=== PATIENT | female | born 1985 | race Caucasian/White ===

== ENCOUNTER → 2016-07-23 | Outpatient (CLI) | payer OTHER ==
[2016-07-24 05:16] LABS: Cardiolipin Ab IgG <9.0 GPL (<15); Cardiolipin Ab IgM 13.6 MPL (<12.5)
[2016-07-24 10:54] LABS: Protein C (Activity) 115 % (70 - 130)
[2016-07-25 10:32] LABS: MTHFR Genotyping(C677T/A1298C) Normal Genotype
[2016-07-26 12:13] LABS: Free Protein S Antigen 92 % (50 - 147)
== END | disposition home or self-care (01) ==
LOC: LABWHC1 10:10
PROVIDERS: ATTEND Obstetrics & Gynecology
DX: Z39.2 Encounter for routine postpartum follow-up (principal)
CPT/HCPCS: 36415; 81241; 81291; 85300; 85303; 85306; 86147

== ENCOUNTER → 2016-09-10 | Outpatient (CLI) | payer OTHER | END | disposition home or self-care (01) | LOC: LABWHC1 14:54 | PROVIDERS: ATTEND Obstetrics & Gynecology | DX: Z34.91 Encounter for supervision of normal pregnancy, unspecified, first trimester (principal); Z3A.00 Weeks of gestation of pregnancy not specified | CPT/HCPCS: 36415; 84702 ==

== ENCOUNTER → 2016-11-26 | Outpatient (CLI) | payer OTHER ==
[2016-11-26 17:21] LABS: CH 31.4; CHCM 34.6; HCT 35.8 % (34.0-46.0); HDW 2.52; HGB 12.2 gm/dL (11.4-16.0); MCH 30.9 pg (25.0-35.0); MCV 90.8 fL (80.0-100.0); Mean Platelet Volume 6.6; RBC 3.95 m/uL (3.80-5.40); RDW 13.7 % (11.5-15.5); WBC 10.6 k/uL (3.8-10.6)
[2016-11-26 17:37] LABS: Glucose 83 mg/dL (74-99); Non-African American GFR(MDRD) >60 (>60 ml/min/1.73 sqM)
[2016-11-26 18:07] LABS: Hepatitis B Surface Ag Index 0.07
== END | disposition home or self-care (01) ==
LOC: LABWHC1 16:14
PROVIDERS: ATTEND Obstetrics & Gynecology
DX: Z34.91 Encounter for supervision of normal pregnancy, unspecified, first trimester (principal); Z3A.00 Weeks of gestation of pregnancy not specified
CPT/HCPCS: 36415; 82565; 82947; 85027; 86762; 86780; 86850; 86900; 86901; 87340

== ENCOUNTER → 2017-03-03 | Outpatient (CLI) | payer OTHER ==
[2017-03-03 10:06] LABS: CH 32.4; CHCM 34.4; HCT 37.7 % (34.0-46.0); HDW 2.88; HGB 12.7 gm/dL (11.4-16.0); MCH 31.9 pg (25.0-35.0); MCHC 33.7 g/dL (31.0-37.0); MCV 94.6 fL (80.0-100.0); RBC 3.99 m/uL (3.80-5.40); RDW 13.9 % (11.5-15.5); WBC 11.3 k/uL (3.8-10.6)
== END | disposition home or self-care (01) ==
LOC: LABWHC1 08:31
PROVIDERS: ATTEND Obstetrics & Gynecology
DX: Z34.82 Encounter for supervision of other normal pregnancy, second trimester (principal)
CPT/HCPCS: 36415; 82950; 85027

== ENCOUNTER 2017-06-06 06:00 | Inpatient (IN) | payer BC, OTHER ==
[2017-06-06] MEDS ORDERED: TERBUTALINE 1 MG/ML VIAL SQ PRN (06:24)
[2017-06-06] MEDS ORDERED: LIDOCAINE 1% (PF) 10 MG/ML (30 ML SDV) SQ PRN (06:24)
[2017-06-06] MEDS ORDERED: CARBOPROST TROMETHAMINE 250 MCG/ML 1 ML AMP IM PRN (06:24)
[2017-06-06] MEDS ORDERED: OXYTOCIN 20 UNITS/1000 ML NS 1,000 ML IV SCH ×2 (06:24→18:30)
[2017-06-06] MEDS ORDERED: OXYTOCIN 10 UNIT/ML 1 ML VIAL IM PRN (06:24)
[2017-06-06] MEDS ORDERED: METHYLERGONOVINE 0.2 MG/ML 1 ML AMP IM PRN (06:24)
[2017-06-06 06:35] VITALS: BMI 30.8
[2017-06-06] MEDS: LACTATED RINGERS 1,000 ML IV SCH ×3 (06:39→14:04)
[2017-06-06 06:47] LABS: Basophils % (A) 0 %; CH 28.5; Eosinophils # (A) 0.1 k/uL (0-0.7); Eosinophils % (A) 1 %; HCT 33.4 % (34.0-46.0); HDW 3.12; HGB 10.9 gm/dL (11.4-16.0); Luc % (Auto) 1; Lymphocytes # (A) 1.6 k/uL (1.0-4.8); Lymphocytes % (A) 17 %; MCH 28.4 pg (25.0-35.0); MCHC 32.7 g/dL (31.0-37.0); MCV 86.8 fL (80.0-100.0); Mean Platelet Volume 8.5; Monocytes # (A) 0.4 k/uL (0-1.0); Monocytes % (A) 5 %; Neutrophils # (A) 6.9 k/uL (1.3-7.7); Neutrophils % (A) 76 %; RBC 3.85 m/uL (3.80-5.40); RDW 14.1 % (11.5-15.5); WBC 9.1 k/uL (3.8-10.6); WBC (Perox) 9.94
--- NOTE | 2017-06-06 07:10 | P.HPOB ---
History of Present Illness H&P Date: 06/06/17 Chief Complaint: Induction of Labor 32 year old presents at 39 weeks for induction of labor. Her cervix is 3 -4/80/-2 and she is cr irregularly. heart tones 130-135 with moderate variability and reactive. Review of Systems All systems: negative Constitutional: Denies chills, Denies fever Eyes: denies blurred vision, denies pain Ears, nose, mouth and throat: Denies headache, Denies sore throat Cardiovascular: Denies chest pain, Denies shortness of breath Respiratory: Denies cough Gastrointestinal: Denies abdominal pain, Denies diarrhea, Denies nausea, Denies vomiting Genitourinary: Denies dysuria, Denies hematuria Musculoskeletal: Denies myalgias Integumentary: Denies pruritus, Denies rash Neurological: Denies numbness, Denies weakness Psychiatric: Denies anxiety, Denies depression Endocrine: Denies fatigue, Denies weight change Past Medical History Past Medical History: Musculoskeletal Disorder Additional Past Medical History / Comment(s): OB history: First was a vaginal delivery at 42 weeks of a stillbirth. THis is her second and she has had care with me since 11 weeks. O+, abs neg, Rub immune, RPR NR, Hep B neg. The placenta has a velamentous cord insertion. THere have been growth USs every 3 weeks and the latest was 7#14 oz, BPPs weekly have been 8/8. GBS neg. History of Any Multi-Drug Resistant Organisms: None Reported Past Surgical History: No Surgical Hx Reported Past Anesthesia/Blood Transfusion Reactions: No Reported Reaction Past Psychological History: No Psychological Hx Reported Smoking Status: Never smoker Past Alcohol Use History: None Reported Past Drug Use History: None Reported - Past Family History Father Family Medical History: Coronary Artery Disease (CAD) Medications and Allergies Home Medications Medication Instructions Recorded Confirmed Type Ibuprofen [Motrin] 600 mg PO Q6HR PRN #30 tab 06/09/16 06/06/17 Rx Pnv No.95/Ferrous Fum/Folic AC 06/06/17 History [ Multivitamin Tablet] Allergies Allergy/AdvReac Type Severity Reaction Status Date / Time No Known Allergies Allergy Verified 06/06/17 06:23 Exam Osteopathic Statement: *. No significant issues noted on an osteopathic structural exam other than those noted in the History and Physical/Consult. - Vital Signs Vital signs: Vital Signs Temp Pulse Resp BP Pulse Ox 06/06/17 06:22 98.3 F 86 16 121/79 98 Intake and Output 06/05/17 06/06/17 06/06/17 22:59 06:59 14:59 Other: Weight 78.925 kg Heart: RRR Lungs: CTAB ABdomen: soft, nontender Extremeties: neg ronald's Results Result Diagrams: 06/06/17 06:27 Abnormal Lab Results - Last 24 Hours (Table) 06/06/17 Range/Units 06:27 Hgb 10.9 L (11.4-16.0) gm/dL Hct 33.4 L (34.0-46.0) % Assessment and Plan (1) Normal labor Current Visit: No Status: Resolved Code(s): O80 - ENCOUNTER FOR FULL-TERM UNCOMPLICATED DELIVERY; Z37.9 - OUTCOME OF DELIVERY, UNSPECIFIED SNOMED Code(s ): 65191920 Plan: 1. Admit to [facility] 2. induction with amniotomy and pitocin 3. anticipate normal vaginal delivery
[2017-06-06] MEDS ORDERED: fentaNYL (PF) 50 MCG/ML 5 ML AMP ONE (10:21)
[2017-06-06] MEDS ORDERED: BUPIVACAINE (PF) 0.25% 30 ML VIAL ONE (10:21)
[2017-06-06] MEDS ORDERED: SODIUM CHLORIDE 0.9% 100 ML BAG ONE (10:21)
[2017-06-06] MEDS ORDERED: Acetaminophen-Codeine 300-30mg TAB PO PRN (18:29)
[2017-06-06] MEDS ORDERED: ACETAMINOPHEN TAB 325 MG TAB PO PRN (18:29)
[2017-06-06] MEDS ORDERED: WITCH HAZEL 1 EACH MED..PAD TOPICAL PRN (18:29)
[2017-06-06] MEDS ORDERED: ZOLPIDEM 5 MG TAB PO PRN (18:29)
[2017-06-06] MEDS ORDERED: diphenhydrAMINE 25 MG CAP PO PRN (18:29)
[2017-06-06] MEDS ORDERED: diphenhydrAMINE 50 MG CAP PO PRN (18:29)
[2017-06-06] MEDS ORDERED: SIMETHICONE 80 MG CHEWABLE PO PRN (18:29)
[2017-06-06] MEDS ORDERED: HYDROCORTISONE 2.5% RECTAL CREAM 30 GM TUBE RECTAL PRN (18:29)
[2017-06-06] MEDS ORDERED: diphenhydrAMINE 50 MG/ML 1 ML VIAL IVP PRN ×2 (18:29)
[2017-06-06] MEDS ORDERED: LANOLIN CREAM 5 GM TUBE TOPICAL PRN (18:29)
[2017-06-06] MEDS ORDERED: BENZOCAINE/MENTHOL SPRAY 1 GM/SPRAY AEROSOL TOPICAL PRN (18:29)
[2017-06-06] MEDS ORDERED: KETOROLAC 30 MG/ML 1 ML VIAL IVP STA (18:41)
[2017-06-06] MEDS: Acetaminophen-Codeine 300-30mg TAB PO PRN ×2 (18:48→19:32)
[2017-06-06] MEDS: SENNOSIDES-DOCUSATE SODIUM 1 EACH TAB PO SCH (21:43)
[2017-06-07] MEDS: IBUPROFEN 600 MG TAB PO PRN ×2 (01:05→07:59)
[2017-06-07] MEDS: Acetaminophen-Codeine 300-30mg TAB PO PRN (05:51)
[2017-06-07] MEDS: SENNOSIDES-DOCUSATE SODIUM 1 EACH TAB PO SCH (07:59)
--- NOTE | 2017-06-07 08:50 | P.PROBDLV ---
Vaginal Delivery Note - . Vaginal Delivery Note: 32 year old presented at 39 weeks for induction of labor. Her cervix was 3-4/80/-2 and she was cr irregularly. heart tones 130-135 with moderate variability and reactive. Amniotomy was performed at 6:50 AM and clear fluid noted. Pitocin was also started. When she was uncomfortable and cr every few minutes, epidural was placed. At this time she was 5 cm dilated. She became extremely uncomfortable when she was about 8 cm dilated and -1 station. She is able to bear down with contractions to bring the head down and become complete at 1700. She pushed, and delivered a viable male at 181 over intact perineum under epidural anesthesia. Head delivered OA, nuchal cord 2 easily reduced, anterior shoulder delivered gentle downward traction followed by posterior shoulder and rest of body. Nose and mouth bulb suctioned, cord clamped and cut, infant placed on mother's abdomen. Apgars 7, 9 , weight 8 lbs. 8 oz. placenta delivered spontaneously, intact with three- vessel cord at 1819. Vagina, cervix, and perineum inspected. First-degree midline laceration was repaired with 3-0 Vicryl. Estimated blood loss 150 mL. Mother and baby in stable condition.
--- NOTE | 2017-06-07 08:51 | P.DS ---
Providers Date of admission: 06/06/17 06:11 Expected date of discharge: 06/07/17 Attending physician: Mercedes Guillen Primary care physician: Stated None - Discharge Diagnosis(es) (1) Normal vaginal delivery Current Visit: Yes Status: Acute Hospital Course: Patient presented for induction of labor. She underwent a normal vaginal delivery. Her course was uncomplicated. She'll be discharged home day #1 in stable condition to follow-up with me in 6 weeks. Plan - Discharge Summary New Discharge Prescriptions: No Action Ibuprofen [Motrin] 600 mg PO Q6HR PRN #30 tab PRN Reason: Mild Pain Or Fever >= 100.5 Pnv No.95/Ferrous Fum/Folic AC [ Multivitamin Tablet] Discharge Medication List Ibuprofen [Motrin] 600 mg PO Q6HR PRN #30 tab 06/09/16 [Rx] Pnv No.95/Ferrous Fum/Folic AC [ Multivitamin Tablet] 06/06/17 [History ] Follow up Appointment(s)/Referral(s): Mercedes Guillen DO [Doctor of Osteopathic Medicine] - 6 Weeks Discharge Disposition: HOME SELF-CARE
[2017-06-07 08:55] VITALS: TEMP 98.4
[2017-06-07 16:30] VITALS: BP 114/69; PULSE 75; RESP 18
== END 2017-06-07 18:40 | disposition home or self-care (01) | DRG 775 ==
LOC: 4FBP 06:11
PROVIDERS: ADMIT Obstetrics & Gynecology; ATTEND Obstetrics & Gynecology
PROC: 00HU33Z Insertion of Infusion Device into Spinal Canal, Percutaneous Approach (ICD-10-PCS; principal; 2017-06-06)
PROC: 3E033VJ Introduction of Other Hormone into Peripheral Vein, Percutaneous Approach (ICD-10-PCS; principal; 2017-06-06)
PROC: 0HQ9XZZ Repair Perineum Skin, External Approach (ICD-10-PCS; principal; 2017-06-06)
PROC: 10907ZC Drainage of Amniotic Fluid, Therapeutic from Products of Conception, Via Natural or Artificial Opening (ICD-10-PCS; principal; 2017-06-06)
PROC: 3E0R3BZ Introduction of Anesthetic Agent into Spinal Canal, Percutaneous Approach (ICD-10-PCS; principal; 2017-06-06)
DX: O69.81X0 Labor and delivery complicated by cord around neck, without compression, not applicable or unspecified (principal); Z37.0 Single live birth; O70.0 First degree perineal laceration during delivery; Z3A.39 39 weeks gestation of pregnancy
CPT/HCPCS: 85025; 88307

== ENCOUNTER → 2018-10-15 | Outpatient (CLI) | payer OTHER ==
[2018-10-15 10:02] LABS: HCT 39.9 % (34.0-46.0); HGB 13.2 gm/dL (11.4-16.0); MCH 30.6 pg (25.0-35.0); MCHC 33.1 g/dL (31.0-37.0); MCV 92.5 fL (80.0-100.0); Mean Platelet Volume 7.3; Platelet Count 268 k/uL (150-450); RBC 4.32 m/uL (3.80-5.40); WBC 9.1 k/uL (3.8-10.6)
[2018-10-15 10:20] LABS: Glucose 68 mg/dL (74-99)
--- NOTE | 2018-10-15 11:24 | US ---
EXAMINATION TYPE: Transabdominal/Transvaginal OB Less Than 14 weeks. DATE OF EXAM: 10/15/2018 10:39 AM COMPARISON: NONE CLINICAL HISTORY: Z36 Confirm dates. Confirm dates. EXAM PERFORMED: Transvaginal (TV) and Transabdominal (TA) EXAM MEASUREMENTS: GESTATIONAL AGE / DATING Physician Established: Not yet established Dates by LMP: 08/15/2018 (8 weeks/5 days) EDC: 05/22/2019 Dates by First Scan: This is first scan. Dates by Current Scan for: (8 weeks/0 days) EDC: 05/27/2019 MATERNAL ANATOMY Uterus: 9.5 x 7.5 x 5.9 cm Right Ovary: 3.4 x 2.4 x 1.7 cm Left Ovary: 4.0 x 2.5 x 2.1 cm Post CDS / Adnexa: Wnl. Presence of free fluid: Not seen Presence of corpus luteal cyst: mixed solid lesion with peripheral flow within ovary: 1.9 x 2.5 x 1.2 cm. Presence of subchorionic bleed: Not seen. GESTATION / SURVEY CRL: 1.57 (8 weeks/0 days) Yolk Sac (normal less than 6mm): 2.28 Heart Rate: 161 bpm Rhythm: Normal IUP: Viable IUP Date of LMP: 08/15/2018 Beta HcG (if available): N/A IMPRESSION: 1. Single viable intrauterine .
== END ==
LOC: RADUSWWP 09:05
PROVIDERS: ATTEND Obstetrics & Gynecology
DX: Z36.9 Encounter for antenatal screening, unspecified (principal); Z34.81 Encounter for supervision of other normal pregnancy, first trimester; Z3A.08 8 weeks gestation of pregnancy
CPT/HCPCS: 76801; 76817; 82565; 82947; 85027; 86762; 86780; 86850; 86900; 86901; 87340

== ENCOUNTER 2018-11-01 23:58 | Emergency (ER) | payer OTHER ==
[2018-11-02 00:04] VITALS: RESP 18
[2018-11-02] MEDS ORDERED: ONDANSETRON 4 MG/2 ML VIAL IVP STA (00:41)
[2018-11-02] MEDS ORDERED: FAMOTIDINE 20 MG/2 ML VIAL IV STA (00:42)
[2018-11-02] MEDS ORDERED: ACETAMINOPHEN TAB 500 MG TAB PO STA (00:42)
--- NOTE | 2018-11-02 00:46 | ED ---
General Adult HPI - General Source: patient, family, RN notes reviewed Mode of arrival: ambulatory Limitations: no limitations <Corey Vargas P - Last Filed: 11/02/18 03:05> <Bethanie Ahumada P - Last Filed: 11/02/18 05:57> - General Chief complaint: Nausea/Vomiting/Diarrhea Stated complaint: 10 wks pgt, vomiting Time Seen by Provider: 11/02/18 00:15 - History of Present Illness Initial comments: 33-year-old female currently 10 weeks presents to the emergency department for a chief complaint of nausea and vomiting. Patient states she has been vomiting every 10 minutes for 3 hours. Patient states she has pain in her upper abdomen when vomiting. Patient has been struggling with vomiting thr oughout this and states there are several hours during the morning and during the evening that she is nauseous and vomiting for the past several weeks. Patient denies any significant lower abdominal pain. Denies dysuria. Patient has no other complaints at this time including shortness of breath, chest pain, headache, or visual changes. (Corey Vargas) - Related Data Home Medications Medication Instructions Recorded Confirmed Pnv No.95/Ferrous Fum/Folic AC 06/06/17 [ Multivitamin Tablet] Previous Rx's Medication Instructions Recorded Ibuprofen [Motrin] 600 mg PO Q6HR PRN #30 tab 06/09/16 Allergies Allergy/AdvReac Type Severity Reaction Status Date / Time No Known Allergies Allergy Verified 11/02/18 00:03 Review of Systems ROS Other: All systems not noted in ROS Statement are negative. <Corey Vargas - Last Filed: 11/02/18 03:05> ROS Other: All systems not noted in ROS Statement are negative. <Bethanie Ahumada P - Last Filed: 11/02/18 05:57> ROS Statement: Those systems with pertinent positive or pertinent negative responses have been documented in the HPI. Past Medical History Past Medical History: Musculoskeletal Disorder Additional Past Medical History / Comment(s): OB history: First was a vaginal delivery at 42 weeks of a stillbirth. THis is her second and she has had care with or since 11 weeks. O+, abs neg, Rub immune, RPR NR, Hep B neg. The placenta has a velamentous cord insertion. THere have been growth USs every 3 weeks and the latest was 7#14 oz, BPPs weekly have been 8/8. GBS neg. History of Any Multi-Drug Resistant Organisms: None Reported Past Surgical History: No Surgical Hx Reported Past Anesthesia/Blood Transfusion Reactions: No Reported Reaction Past Psychological History: No Psychological Hx Reported Smoking Status: Never smoker Past Alcohol Use History: None Reported Past Drug Use History: None Reported - Past Family History Father Family Medical History: Coronary Artery Disease (CAD) <Corey Vargas P - Last Filed: 11/02/18 03:05> General Exam Limitations: no limitations General appearance: alert, in no apparent distress Head exam: Present: atraumatic, normocephalic, normal inspection Eye exam: Present: normal appearance, PERRL, EOMI. Absent: scleral icterus, conjunctival injection, periorbital swelling ENT exam: Present: normal exam, mucous membranes moist Neck exam: Present: normal inspection, full ROM. Absent: tenderness, meningismus, lymphadenopathy Respiratory exam: Present: normal lung sounds bilaterally. Absent: respiratory distress, wheezes, rales, rhonchi, stridor Cardiovascular Exam: Present: regular rate, normal rhythm, normal heart sounds. Absent: systolic murmur, diastolic murmur, rubs, gallop, clicks GI/Abdominal exam: Present: soft, tenderness (Tenderness noted in the upper abdominal area including epigastric, right upper quadrant, and left upper quadrant), normal bowel sounds. Absent: distended, guarding, rebound, rigid Neurological exam: Present: alert, oriented X3, CN II-XII intact Psychiatric exam: Present: normal affect, normal mood <Corey Vargas P - Last Filed: 11/02/18 03:05> Course Vital Signs 11/02/18 11/02/18 11/02/18 00:00 02:00 03:00 Temperature 98.1 F 97 F L Pulse Rate 98 89 72 Respiratory 18 18 18 Rate Blood Pressure 110/66 112/70 118/72 O2 Sat by Pulse 99 97 97 Oximetry Medical Decision Making - Lab Data Result diagrams: 11/02/18 00:41 11/02/18 00:41 <Corey Vargas P - Last Filed: 11/02/18 03:05> - Lab Data Result diagrams: 11/02/18 00:41 11/02/18 00:41 <Bethanie Ahumada - Last Filed: 11/02/18 05:57> - Medical Decision Making 33-year-old female presents to the emergency determine for chief complaint of upper abdominal pain with nausea and vomiting. Patient is currently 10 weeks . Patient states she has been vomiting every 10 minutes for the past 3 hours. Sates she has been having a lot of nausea and vomiting for the past several weeks with this . On exam patient does have upper abdominal tenderness without guarding or rebound. CBC does show a white count of 15, likely related to vomiting. CMP unremarkable. Bedside ultrasound was performed which showed heart rate 160. Urinalysis repeated because contaminated with squamous cells which did not show evidence of infection but did show 11 red blood cells. Patient was given Pepcid which did significantly help her pain and she states all her pain resolved. Repeat examination of the abdomen was performed and patient does not have any tenderness and abdomen is soft. However she is still nauseous. Patient given Zofran at that time. Patient still does have significant nausea after Zofran given and has vomited an additional time. Patient was given Reglan and Benadryl with D5 n saline, feeling much better. Actually requesting discharge at this time so he can go home and sleep as her nausea has resolved. Patient states she has an appointment with her [facility] Dr. Guillen tomorrow morning. States when will return here if she has any worsening symptoms. (Corey Vargas) I was available for consultation in the emergency department. The history and physical exam were done by the midlevel provider. I was consulted for this patient's care. I reviewed the case with the midlevel provider and based on their presentation of the patient, I agree with the assessment, medical decision making and plan of care as documented. (Bethanie Ahumada) - Lab Data Lab Results 11/02/18 11/02/18 11/02/18 Range/Units 00:41 00:41 01:35 WBC 15.1 H (3.8-10.6) k/uL RBC 4.37 (3.80-5.40) m/uL Hgb 13.1 (11.4-16.0) gm/dL Hct 38.6 (34.0-46.0) % MCV 88.3 (80.0-100.0) fL MCH 29.9 (25.0-35.0) pg MCHC 33.9 (31.0-37.0) g/dL RDW 12.6 (11.5-15.5) % Plt Count 260 (150-450) k/uL Neutrophils % 90 % Lymphocytes % 5 % Monocytes % 2 % Eosinophils % 2 % Basophils % 0 % Neutrophils # 13.6 H (1.3-7.7) k/uL Lymphocytes # 0.8 L (1.0-4.8) k/uL Monocytes # 0.4 (0-1.0) k/uL Eosinophils # 0.3 (0-0.7) k/uL Basophils # 0.0 (0-0.2) k/uL Sodium 137 (137-145) mmol/L Potassium 4.0 (3.5-5.1) mmol/L Chloride 105 (98-107) mmol/L Carbon Dioxide 25 (22-30) mmol/L Anion Gap 7 mmol/L BUN 16 (7-17) mg/dL Creatinine 0.40 L (0.52-1.04) mg/dL Est GFR (CKD-EPI)AfAm >90 (>60 ml/min/1.73 sqM) Est GFR (CKD-EPI)NonAf >90 (>60 ml/min/1.73 sqM) Glucose 91 (74-99) mg/dL Calcium 9.3 (8.4-10.2) mg/dL Total Bilirubin 0.6 (0.2-1.3) mg/dL AST 18 (14-36) U/L ALT 20 (9-52) U/L Alkaline Phosphatase 47 (38-126) U/L Total Protein 7.2 (6.3-8.2) g/dL Albumin 4.3 (3.5-5.0) g/dL Amylase 38 (30-110) U/L Lipase 110 (23-300) U/L HCG, Quant 549652.0 mIU/mL Urine Color Urine Appearance (Clear) Urine pH (5.0-8.0) Ur Specific Belcher (1.001-1.035) Urine Protein (Negative) Urine Glucose (UA) (Negative) Urine Ketones (Negative) Urine Blood (Negative) Urine Nitrite (Negative) Urine Bilirubin (Negative) Urine Urobilinogen (<2.0) mg/dL Ur Leukocyte Esterase (Negative) Urine RBC (0-5) /hpf Urine WBC (0-5) /hpf Ur Squamous Epith Cells (0-4) /hpf Urine Bacteria (None) /hpf Urine Mucus (None) /hpf Urine HCG, Qual Detected (Not Detectd) 11/02/18 11/02/18 Range/Units 01:35 02:21 WBC (3.8-10.6) k/uL RBC (3.80-5.40) m/uL Hgb (11.4-16.0) gm/dL Hct (34.0-46.0) % MCV (80.0-100.0) fL MCH (25.0-35.0) pg MCHC (31.0-37.0) g/dL RDW (11.5-15.5) % Plt Count (150-450) k/uL Neutrophils % % Lymphocytes % % Monocytes % % Eosinophils % % Basophils % % Neutrophils # (1.3-7.7) k/uL Lymphocytes # (1.0-4.8) k/uL Monocytes # (0-1.0) k/uL Eosinophils # (0-0.7) k/uL Basophils # (0-0.2) k/uL Sodium (137-145) mmol/L Potassium (3.5-5.1) mmol/L Chloride (98-107) mmol/L Carbon Dioxide (22-30) mmol/L Anion Gap mmol/L BUN (7-17) mg/dL Creatinine (0.52-1.04) mg/dL Est GFR (CKD-EPI)AfAm (>60 ml/min/1.73 sqM) Est GFR (CKD-EPI)NonAf (>60 ml/min/1.73 sqM) Glucose (74-99) mg/dL Calcium (8.4-10.2) mg/dL Total Bilirubin (0.2-1.3) mg/dL AST (14-36) U/L ALT (9-52) U/L Alkaline Phosphatase (38-126) U/L Total Protein (6.3-8.2) g/dL Albumin (3.5-5.0) g/dL Amylase (30-110) U/L Lipase (23-300) U/L HCG, Quant mIU/mL Urine Color Yellow Yellow Urine Appearance Cloudy H Clear (Clear) Urine pH 7.5 8.5 H (5.0-8.0) Ur Specific Belcher 1.028 1.029 (1.001-1.035) Urine Protein 1+ H 1+ H (Negative) Urine Glucose (UA) Negative Negative (Negative) Urine Ketones Negative Negative (Negative) Urine Blood Negative Negative (Negative) Urine Nitrite Negative Negative (Negative) Urine Bilirubin Negative Negative (Negative) Urine Urobilinogen <2.0 <2.0 (<2.0) mg/dL Ur Leukocyte Esterase Large H Negative (Negative) Urine RBC 18 H 11 H (0-5) /hpf Urine WBC 16 H 1 (0-5) /hpf Ur Squamous Epith Cells 30 H 2 (0-4) /hpf Urine Bacteria Rare H (None) /hpf Urine Mucus Many H Few H (None) /hpf Urine HCG, Qual (Not Detectd) Disposition Is patient prescribed a controlled substance at d/c from ED?: No Time of Disposition: 03:01 <Corey Vargas P - Last Filed: 11/02/18 03:05> <Bethanie Ahumada P - Last Filed: 11/02/18 05:57> Clinical Impression: Nausea and vomiting during Disposition: HOME SELF-CARE Condition: Good Instructions (If sedation given, give patient instructions): Nausea and Vomi ting in (ED) Additional Instructions: Please follow up with Dr. Guillen tomorrow. Please return to the emergency department if you have any worsening symptoms. Referrals: Mercedes Guillen DO [Doctor of Osteopathic Medicine] - 1-2 days
[2018-11-02 00:51] LABS: Basophils % (A) 0 %; Eosinophils # (A) 0.3 k/uL (0-0.7); Eosinophils % (A) 2 %; HCT 38.6 % (34.0-46.0); HGB 13.1 gm/dL (11.4-16.0); Lymphocytes # (A) 0.8 k/uL (1.0-4.8); Lymphocytes % (A) 5 %; MCH 29.9 pg (25.0-35.0); MCHC 33.9 g/dL (31.0-37.0); MCV 88.3 fL (80.0-100.0); Mean Platelet Volume 6.8; Monocytes # (A) 0.4 k/uL (0-1.0); Monocytes % (A) 2 %; Neutrophils # (A) 13.6 k/uL (1.3-7.7); Neutrophils % (A) 90 %; Platelet Count 260 k/uL (150-450); RBC 4.37 m/uL (3.80-5.40); RDW 12.6 % (11.5-15.5); WBC 15.1 k/uL (3.8-10.6)
[2018-11-02 00:59] LABS: ALT 20 U/L (9-52); AST 18 U/L (14-36); Albumin 4.3 g/dL (3.5-5.0); Alkaline Phosphatase 47 U/L (38-126); Amylase 38 U/L (30-110); Anion Gap 7 mmol/L; Blood Urea Nitrogen 16 mg/dL (7-17); Calcium 9.3 mg/dL (8.4-10.2); Carbon Dioxide 25 mmol/L (22-30); Chloride 105 mmol/L (98-107); Glucose 91 mg/dL (74-99); Lipase 110 U/L (23-300); Sodium 137 mmol/L (137-145); Total Bilirubin 0.6 mg/dL (0.2-1.3); Total Protein 7.2 g/dL (6.3-8.2)
[2018-11-02] MEDS ORDERED: diphenhydrAMINE 50 MG/ML 1 ML VIAL IVP STA (01:51)
[2018-11-02] MEDS ORDERED: METOCLOPRAMIDE 5 MG/ML 2 ML VIAL IVP STA (01:51)
[2018-11-02 01:55] LABS: Appearance,Urine Cloudy (Clear); Bacteria,Urine Rare /hpf; Bilirubin,Urine Negative (Negative); Blood,Urine Negative (Negative); Color,Urine Yellow; Glucose,Urine (UA) Negative (Negative); Ketones,Urine Negative (Negative); Leukocyte Esterase,Urine Large (Negative); Mucus,Urine Many /hpf; Nitrite,Urine Negative (Negative); PH, Urine 7.5 (5.0-8.0); Protein,Urine 1+ (Negative); RBC,Urine 18 /hpf (0-5); Specific Gravity,Urine 1.028 (1.001-1.035); Squamous Epithelial Cell,Urine 30 /hpf (0-4); Urobilinogen,Urine <2.0 mg/dL (<2.0); WBC,Urine 16 /hpf (0-5)
[2018-11-02] MEDS ORDERED: DEXTROSE 5%-0.9% NACL 1,000 ML IV SCH (02:00)
[2018-11-02 02:40] LABS: Appearance,Urine Clear (Clear); Bilirubin,Urine Negative (Negative); Blood,Urine Negative (Negative); Color,Urine Yellow; Glucose,Urine (UA) Negative (Negative); Ketones,Urine Negative (Negative); Leukocyte Esterase,Urine Negative (Negative); Mucus,Urine Few /hpf; Nitrite,Urine Negative (Negative); PH, Urine 8.5 (5.0-8.0); Protein,Urine 1+ (Negative); RBC,Urine 11 /hpf (0-5); Specific Gravity,Urine 1.029 (1.001-1.035); Squamous Epithelial Cell,Urine 2 /hpf (0-4); Urobilinogen,Urine <2.0 mg/dL (<2.0); WBC,Urine 1 /hpf (0-5)
[2018-11-02 03:02] VITALS: BP 118/72; PULSE 72; TEMP 97
== END 2018-11-02 03:09 | disposition home or self-care (01) ==
LOC: EC 23:58
DX: O21.9 Vomiting of pregnancy, unspecified (principal); Z3A.10 10 weeks gestation of pregnancy
CPT/HCPCS: 36415; 80053; 82150; 83690; 85025; 81001; 81025; 84702; 99284; 96374; 96375 ×3; 96361; J1200; J2765; J2405

== ENCOUNTER 2019-05-18 06:09 | Inpatient (IN) | payer OTHER ==
[2019-05-18] MEDS ORDERED: LIDOCAINE 0.5% (PF) 5 MG/ML (50 ML SDV) SQ PRN (06:20)
[2019-05-18] MEDS ORDERED: OXYTOCIN 30 UNITS/500 ML NS 30 UNIT in SALINE 1 500ML.BAG IV SCH (06:20)
[2019-05-18] MEDS ORDERED: OXYTOCIN 10 UNIT/ML 1 ML VIAL IM PRN (06:20)
[2019-05-18] MEDS ORDERED: METHYLERGONOVINE 0.2 MG/ML 1 ML AMP IM PRN (06:20)
[2019-05-18] MEDS ORDERED: CARBOPROST TROMETHAMINE 250 MCG/ML 1 ML AMP IM PRN (06:20)
[2019-05-18] MEDS ORDERED: TERBUTALINE 1 MG/ML VIAL SQ PRN (06:20)
[2019-05-18 06:27] VITALS: BMI 29.2
[2019-05-18] MEDS: LACTATED RINGERS 1,000 ML IV SCH ×3 (06:29→14:16)
[2019-05-18 06:47] LABS: Basophils % (A) 0 %; Eosinophils # (A) 0.2 k/uL (0-0.7); Eosinophils % (A) 2 %; HCT 31.7 % (34.0-46.0); HGB 10.8 gm/dL (11.4-16.0); Lymphocytes # (A) 1.4 k/uL (1.0-4.8); Lymphocytes % (A) 16 %; MCH 29.8 pg (25.0-35.0); MCHC 34.1 g/dL (31.0-37.0); MCV 87.2 fL (80.0-100.0); Mean Platelet Volume 7.2; Monocytes # (A) 0.4 k/uL (0-1.0); Monocytes % (A) 4 %; Neutrophils # (A) 6.8 k/uL (1.3-7.7); Neutrophils % (A) 76 %; Platelet Count 196 k/uL (150-450); RBC 3.63 m/uL (3.80-5.40); RDW 12.6 % (11.5-15.5)
[2019-05-18] MEDS ORDERED: ROPIVACAINE 5MG/ML 20ML VIAL ONE (14:21)
[2019-05-18] MEDS ORDERED: SODIUM CHLORIDE 0.9% 100 ML BAG ONE (14:21)
[2019-05-18] MEDS ORDERED: fentaNYL (PF) 50 MCG/ML 5 ML AMP ONE (14:21)
--- NOTE | 2019-05-18 23:49 | P.HPOB ---
History of Present Illness H&P Date: 05/18/19 Chief Complaint: Induction of labor 34-year-old presents at 39 weeks and 4 days for induction of labor. Her cervix was 1 cm dilated, 60% effaced, and -2 station. She is cr irregularly. heart tones 130 with moderate variability and reactive. Review of Systems All systems: negative Constitutional: Denies chills, Denies fever Eyes: denies blurred vision, denies pain Ears, nose, mouth and throat: Denies headache, Denies sore throat Cardiovascular: Denies chest pain, Denies shortness of breath Respiratory: Denies cough Gastrointestinal: Denies abdominal pain, Denies diarrhea, Denies nausea, Denies vomiting Genitourinary: Denies dysuria, Denies hematuria Musculoskeletal: Denies myalgias Integumentary: Denies pruritus, Denies rash Neurological: Denies numbness, Denies weakness Psychiatric: Denies anxiety, Denies depression Endocrine: Denies fatigue, Denies weight change Past Medical History Past Medical History: Musculoskeletal Disorder Additional Past Medical History / Comment(s): OB history: First was a vaginal delivery at 42 weeks of a stillbirth. Second was a normal vaginal delivery at 39 weeks. This is her third and she's had care with me since the first trimester. O+, abs neg, Rub immune, RPR NR, Hep B neg, GBS negative. [facility] [place] recommended NSTs, biophysical profiles and delivery at 39 weeks-40 weeks. History of Any Multi-Drug Resistant Organisms: None Reported Past Surgical History: No Surgical Hx Reported Past Anesthesia/Blood Transfusion Reactions: No Reported Reaction Past Psychological History: No Psychological Hx Reported Smoking Status: Never smoker Past Alcohol Use History: None Reported Past Drug Use History: None Reported - Past Family History Father Family Medical History: Coronary Artery Disease (CAD) Medications and Allergies Home Medications Medication Instructions Recorded Confirmed Type Pnv No.95/Ferrous Fum/Folic AC 1 tab PO DAILY 06/06/17 05/18/19 History [ Multivitamin Tablet] Allergies Allergy/AdvReac Type Severity Reaction Status Date / Time No Known Allergies Allergy Verified 05/18/19 06:20 Exam Osteopathic Statement: *. No significant issues noted on an osteopathic struct ural exam other than those noted in the History and Physical/Consult. Vital Signs Temp Pulse Resp BP Pulse Ox 05/18/19 06:23 97.2 F L 81 14 112/67 99 Intake and Output 05/18/19 05/18/19 05/19/19 14:59 22:59 06:59 Output Total 250 Balance -250 Output: Urine 250 Heart: Regular rate and rhythm Lungs: Clear to auscultation bilaterally Abdomen: Soft, nontender Extremities: Negative Homans sign Results Result Diagrams: 05/18/19 06:30 Abnormal Lab Results - Last 24 Hours (Table) 05/18/19 Range/Units 06:30 RBC 3.63 L (3.80-5.40) m/uL Hgb 10.8 L (11.4-16.0) gm/dL Hct 31.7 L (34.0-46.0) % Assessment and Plan (1) Normal labor Current Visit: No Status: Resolved Code(s): O80 - ENCOUNTER FOR FULL-TERM UNCOMPLICATED DELIVERY; Z37.9 - OUTCOME OF DELIVERY, UNSPECIFIED SNOMED Code(s): 58390459 Plan: 1. Admit to family place 2. Induction of labor with amniotomy and Pitocin 3. Anticipate normal vaginal delivery
[2019-05-19] MEDS ORDERED: HYDROCORTISONE 2.5% RECTAL CREAM 30 GM TUBE RECTAL PRN (00:27)
[2019-05-19] MEDS ORDERED: ZOLPIDEM 5 MG TAB PO PRN (00:27)
[2019-05-19] MEDS ORDERED: diphenhydrAMINE 25 MG CAP PO PRN (00:27)
[2019-05-19] MEDS ORDERED: diphenhydrAMINE 50 MG/ML 1 ML VIAL IVP PRN ×2 (00:27)
[2019-05-19] MEDS ORDERED: diphenhydrAMINE 50 MG CAP PO PRN (00:27)
[2019-05-19] MEDS ORDERED: SIMETHICONE 80 MG CHEWABLE PO PRN (00:27)
[2019-05-19] MEDS ORDERED: WITCH HAZEL 1 EACH MED..PAD TOPICAL PRN (00:27)
[2019-05-19] MEDS ORDERED: BENZOCAINE/MENTHOL SPRAY 1 GM/SPRAY AEROSOL TOPICAL PRN (00:27)
[2019-05-19] MEDS ORDERED: LANOLIN CREAM 5 GM TUBE TOPICAL PRN (00:27)
[2019-05-19] MEDS ORDERED: OXYTOCIN 20 UNITS/1000 ML NS 1,000 ML IV SCH (00:30)
[2019-05-19] MEDS: IBUPROFEN 600 MG TAB PO PRN ×3 (01:14→23:29)
[2019-05-19] MEDS: ACETAMINOPHEN TAB 325 MG TAB PO PRN ×3 (04:42→22:10)
--- NOTE | 2019-05-19 08:05 | P.PROBDLV ---
Vaginal Delivery Note - . Vaginal Delivery Note: 34-year-old presents at 39 weeks and 4 days for induction of labor. Her cervix was 1 cm dilated, 60% effaced, and -2 station. She is cr irregularly. heart tones 130 with moderate variability and reactive. Pitocin was started. Amniotomy was performed at 7:44 AM clear fluid noted. Pitocin was increased throughout the day and when she was very uncomfortable she did get an epidural. When she was 7-8 cm she did require a bolus under epidura l. When she had the urge to push she was still only 8-9 cm, 90% effaced, and -2 station. She did push well though and only pushed 2 times to deliver a viable male over intact perineum under epidural anesthesia at 0018. Head delivered OA, nuchal cord 1 easily reduced, anterior shoulder delivered gentle downward guidance of the posterior shoulder and rest of body. Nose and mouth bulb suctioned, cord clamped and cut, infant handed off to waiting nurses. Apgars 8, 9, weight 7 lbs. 7 oz. Placenta delivered spontaneously, intact with three-vessel cord at 0019. Vagina, cervix, and perineum were inspected. No lacerations noted. Estimated blood loss 300 mL. Mother and baby in stable condition.
[2019-05-19] MEDS: SENNOSIDES-DOCUSATE SODIUM 1 EACH TAB PO SCH ×2 (09:02→21:06)
[2019-05-20 07:13] LABS: Basophils % (A) 0 %; Eosinophils # (A) 0.2 k/uL (0-0.7); Eosinophils % (A) 2 %; HCT 28.8 % (34.0-46.0); Lymphocytes # (A) 1.8 k/uL (1.0-4.8); Lymphocytes % (A) 17 %; MCH 28.5 pg (25.0-35.0); MCHC 32.4 g/dL (31.0-37.0); MCV 87.9 fL (80.0-100.0); Mean Platelet Volume 7.8; Monocytes # (A) 0.4 k/uL (0-1.0); Monocytes % (A) 4 %; Neutrophils # (A) 7.5 k/uL (1.3-7.7); Neutrophils % (A) 75 %; Platelet Count 200 k/uL (150-450); RBC 3.28 m/uL (3.80-5.40); RDW 12.8 % (11.5-15.5)
[2019-05-20 07:16] LABS: HGB 9.3 gm/dL (11.4-16.0)
[2019-05-20 08:33] VITALS: BP 110/62; PULSE 79; RESP 16; TEMP 98.3
--- NOTE | 2019-05-20 12:25 | P.DS ---
Providers Date of admission: 05/18/19 06:09 Expected date of discharge: 05/20/19 Attending physician: Mercedes Guillen Primary care physician: Stated None Hospital Course: This is a 34-year-old female 3 para 1 at 39-3/7 weeks, who presented for induction of labor. She underwent oxytocin induction of labor and delivered vaginally a viable male infant on 05/19/2019 with scores of 8 at 1 minute and 9 at 5 minutes and infant weight of 7 lbs. 7 oz. Her course has been uncomplicated. Lochia is decreasing. Pain is well-controlled. Vital signs are stable. Abdomen is soft with fundus firm and nontender. Extremities show negative Homans. Impression is status post vaginal delivery day #1. Plan is to discharge home today. Routine instructions are given. She is advised to follow up in the office in 6 weeks for a check with Dr. Guillen. She is advised to call the office if she has any further questions or concerns prior to her appointment time. She will be given a presc ription for ibuprofen and a breast pump. Procedures: Oxytocin induction of labor Spontaneous vaginal delivery of a viable male infant on 05/19/2019 Patient Condition at Discharge: Stable Plan - Discharge Summary New Discharge Prescriptions: New Ibuprofen [Motrin] 600 mg PO Q6HR PRN #60 tab PRN Reason: Mild Pain Or Fever >= 100.5 Continue Pnv No.95/Ferrous Fum/Folic AC [ Multivitamin Tablet] 1 tab PO DAILY Discharge Medication List Pnv No.95/Ferrous Fum/Folic AC [ Multivitamin Tablet] 1 tab PO DAILY 06/06/17 [History] Ibuprofen [Motrin] 600 mg PO Q6HR PRN #60 tab 05/20/19 [Rx] Follow up Appointment(s)/Referral(s): Mercedes Guillen DO [Doctor of Osteopathic Medicine] - 6 Weeks Activity/Diet/Wound Care/Special Instructions: Instructions 1. Do not begin any exercise program for 3 weeks. 2. Do not resume sexual relations for 3 weeks or longer if uncomfortable. 3. You may take tub baths or showers at any time. 4. You may use tampons if desired after 3 weeks. 5. Keep the area of episiotomy (stitches) clean and dry. 6. If you are not nursing, wear a good fitting, supportive bra during the day and limit fluid intake for at least 1 week to prevent breast engorgement. 7. Call the office, [phone], within the next week to make appointment for your 6 week checkup if it has not already been made. 8. Report any of the following occurrences to the doctor promptly: a. Heavy, excessive bleeding b. Chills, fever c. Burning or frequency of urination d. Pain or redness and breasts if nursing e. Increasing pain or swelling in episiotomy (stitches). In addition to the above instructions, the following additional should be followed: 1. No heavy lifting or straining (exercising) until after 6 week checkup. 2. Keep abdominal incision clean and dry: You may wear a dressing if more comfortable. 3. Make office appointment for 10 days after going home or as instructed by her doctor. Discharge Disposition: HOME SELF-CARE
[2019-05-20] MEDS: IBUPROFEN 600 MG TAB PO PRN (13:56)
== END 2019-05-20 14:30 | disposition home or self-care (01) | DRG 807 ==
LOC: 4FBP 06:09
PROVIDERS: ADMIT Obstetrics & Gynecology; ATTEND Obstetrics & Gynecology
PROC: 10E0XZZ Delivery of Products of Conception, External Approach (ICD-10-PCS; principal; 2019-05-19)
PROC: 00HU33Z Insertion of Infusion Device into Spinal Canal, Percutaneous Approach (ICD-10-PCS; 2019-05-19)
PROC: 3E0R3BZ Introduction of Anesthetic Agent into Spinal Canal, Percutaneous Approach (ICD-10-PCS; 2019-05-19)
PROC: 10907ZC Drainage of Amniotic Fluid, Therapeutic from Products of Conception, Via Natural or Artificial Opening (ICD-10-PCS; 2019-05-19)
PROC: 3E033VJ Introduction of Other Hormone into Peripheral Vein, Percutaneous Approach (ICD-10-PCS; 2019-05-19)
DX: O69.81X0 Labor and delivery complicated by cord around neck, without compression, not applicable or unspecified (principal); Z37.0 Single live birth; Z3A.39 39 weeks gestation of pregnancy; Z82.49 Family history of ischemic heart disease and other diseases of the circulatory system
CPT/HCPCS: 85025; 86850; 86900; 86901

== ENCOUNTER → 2020-07-24 | Outpatient (CLI) | payer OTHER | END | disposition home or self-care (01) | LOC: LABWHC1 11:04 | PROVIDERS: ATTEND Obstetrics & Gynecology | DX: Z34.80 Encounter for supervision of other normal pregnancy, unspecified trimester (principal) | CPT/HCPCS: 36415; 84702 ==

== ENCOUNTER → 2020-07-26 | Outpatient (CLI) | payer OTHER | END | disposition home or self-care (01) | LOC: LABWHC1 09:32 | PROVIDERS: ATTEND Obstetrics & Gynecology | DX: Z34.80 Encounter for supervision of other normal pregnancy, unspecified trimester (principal) | CPT/HCPCS: 36415; 84702 ==

== ENCOUNTER 2021-03-14 11:26 | Day surgery (SDC) | payer OTHER ==
--- NOTE | 2021-03-14 11:09 | P.HPOB ---
History of Present Illness H&P Date: 03/14/21 Chief Complaint: missed 35 year old presents for suction D&C. She had an US this week showing an 8week 5 day with no heart beat. Review of Systems All systems: negative Constitutional: Denies chills, Denies fever Eyes: denies blurred vision, denies pain Ears, nose, mouth and throat: Denies headache, Denies sore throat Cardiovascular: Denies chest pain, Denies shortness of breath Respiratory: Denies cough Gastrointestinal: Denies abdominal pain, Denies diarrhea, Denies nausea, Denies vomiting Genitourinary: Denies dysuria, Denies hematuria Musculoskeletal: Denies myalgias Integumentary: Denies pruritus, Denies rash Neurological: Denies numbness, Denies weakness Psychiatric: Denies anxiety, Denies depression Endocrine: Denies fatigue, Denies weight change Past Medical History Past Medical History: Musculoskeletal Disorder Additional Past Medical History / Comment(s): OB history: First was a vaginal delivery at 42 weeks of a stillbirth. Second was a normal vaginal delivery at 39 weeks. This is her third and she's had care with me since the first trimester. O+, abs neg, Rub immune, RPR NR, Hep B neg, GBS negative. [facility] recommended NSTs, biophysical profiles and delivery at 39 weeks-40 weeks. History of Any Multi-Drug Resistant Organisms: None Reported Past Surgical History: No Surgical Hx Reported Past Anesthesia/Blood Transfusion Reactions: No Reported Reaction Past Psychological History: No Psychological Hx Reported Past Alcohol Use History: None Reported Past Drug Use History: None Reported - Past Family History Father Family Medical History: Coronary Artery Disease (CAD) Medications and Allergies Home Medications Medication Instructions Recorded Confirmed Type Pnv No.95/Ferrous Fum/Folic AC 1 tab PO DAILY 06/06/17 05/18/19 History [ Multivitamin Tablet] Ibuprofen [Motrin] 600 mg PO Q6HR PRN #60 tab 05/20/19 Rx Allergies Allergy/AdvReac Type Severity Reaction Status Date / Time No Known Allergies Allergy Verified 05/18/19 06:20 Exam Osteopathic Statement: *. No significant issues noted on an osteopathic structural exam other than those noted in the History and Physical/Consult. HEart: RRR Lungs: CTAB Abdomen: soft, nontender Extremeties: neg ronald's Assessment and Plan (1) Missed Status: Acute Code(s): O02.1 - MISSED SNOMED Code(s): 78242404 Plan: 1. suction D&C
[~2021-03-14 11:26] MED LIST: DEXAMETHASONE SOD PHOSPHATE 4 MG/ML 1 ML VIAL IV ONE; HYDROmorphone 0.5 MG/0.5 ML SYRINGE IVP PRN; LACTATED RINGERS 1,000 ML IV SCH; ONDANSETRON 4 MG/2 ML VIAL IVP ONE; Pre Op ABX Message 1 EACH MISC MISCELLANE ONE
[2021-03-14] MEDS ORDERED: SCOPOLAMINE 1.5MG/72HR PATCH TRANSDERM ONE (12:03)
[2021-03-14 12:10] LABS: Basophils % (A) 0 %; Eosinophils # (A) 0.1 k/uL (0-0.7); Eosinophils % (A) 2 %; HCT 38.9 % (34.0-46.0); HGB 13.3 gm/dL (11.4-16.0); Lymphocytes # (A) 1.3 k/uL (1.0-4.8); Lymphocytes % (A) 24 %; MCH 32.4 pg (25.0-35.0); MCHC 34.2 g/dL (31.0-37.0); MCV 94.7 fL (80.0-100.0); Mean Platelet Volume 7.9; Monocytes # (A) 0.2 k/uL (0-1.0); Monocytes % (A) 3 %; Neutrophils # (A) 3.8 k/uL (1.3-7.7); Neutrophils % (A) 69 %; Platelet Count 260 k/uL (150-450); RBC 4.11 m/uL (3.80-5.40); RDW 12.8 % (11.5-15.5); WBC 5.5 k/uL (3.8-10.6)
[2021-03-14] MEDS ORDERED: MIDAZOLAM 2 MG/2 ML VIAL ONE (12:27)
[2021-03-14] MEDS ORDERED: fentaNYL (PF) 50 MCG/ML 2 ML AMP ONE (12:27)
[2021-03-14] MEDS ORDERED: KETOROLAC 15 MG/ML 1 ML VIAL ONE (12:27)
[2021-03-14] MEDS ORDERED: LIDOCAINE 1% INJ 10MG/ML (20 ML MDV) ONE (12:27)
[2021-03-14] MEDS ORDERED: PROPOFOL 10 MG/ML 20 ML VIAL IV ONE (12:27)
--- NOTE | 2021-03-14 13:03 | P.OP ---
Date of Procedure: 03/14/21 Preoperative Diagnosis: 1. missed Postoperative Diagnosis: 1. missed Procedure(s) Performed: suction D&C Anesthesia: JEANNETTE Surgeon: Mercedes Guillen Estimated Blood Loss (ml): 250 IV fluids (ml): 400 Urine output (ml): 20 Pathology: other (products of conception) Condition: stable Disposition: PACU Description of Procedure: Patient taken the operating room and general anesthesia was obtained without difficulty. She is prepped draped in normal sterile fashion dorsal lithotomy position, legs placed in candycane stirrups. Bladder drained of all urine. Weighted speculum place in vagina and the anterior lip the cervix was grasped with single-tooth tenaculum. Cervix is dilated enough to allow a 10 mm suction curet to be introduced into the uterus and hooked up to suction. This was passed several times to obtain tissue and blood. A sharp curette was used to ensure all tissue had been removed. Hemostasis was assured. Patient PROCEDURE well, sponge and instrument counts correct 2. She is taken to recovery in stable condition.
[2021-03-14 13:11] VITALS: TEMP 97
[2021-03-14] MEDS ORDERED: LACTATED RINGERS 1,000 ML IV ONE (13:30)
[2021-03-14 14:08] VITALS: BP 95/63; PULSE 60; RESP 16
== END 2021-03-14 14:38 | disposition home or self-care (01) ==
LOC: OR 11:26
PROVIDERS: ATTEND Obstetrics & Gynecology
DX: O02.1 Missed abortion (principal)
CPT/HCPCS: 86900; 86901; 88305; 85025; 86850; 59820; J2250; J1100; J2405; J2001; J3010; J1885; J2704

== ENCOUNTER 2021-06-09 07:37 | Emergency (ER) | payer OTHER ==
[2021-06-09 07:43] VITALS: RESP 18; TEMP 97.6
[2021-06-09] MEDS ORDERED: SODIUM CHLORIDE 0.9% 50 ML IVPB ONE (08:15)
--- NOTE | 2021-06-09 08:16 | ED ---
URI HPI - General Chief Complaint: Upper Respiratory Infection Stated Complaint: covid +, wants BAM Time Seen by Provider: 06/09/21 07:45 Source: patient, RN notes reviewed Mode of arrival: ambulatory Limitations: no limitations - History of Present Illness Initial Comments: Patient is a 36-year-old female presenting to the emergency department requesti ng monoclonal antibodies. Patient states started having viral type symptoms 5 days ago, she tests positive for Covid this morning with her at home test. She states she's been having body aches, chills, coughing congestion. She denies any fevers, no chest pains, some mild shortness of breath. She denies history of asthma, she is a nonsmoker. She denies being . She denies any vomiting or diarrhea, occasional nausea. She has no further complaints, her vital signs are stable upon arrival. - Related Data Home Medications Medication Instructions Recorded Confirmed Ibuprofen [Motrin Ib] 800 mg PO Q8H PRN 06/09/21 06/09/21 Allergies Allergy/AdvReac Type Severity Reaction Status Date / Time No Known Allergies Allergy Verified 06/09/21 08:38 Review of Systems ROS Statement: Those systems with pertinent positive or pertinent negative responses have been documented in the HPI. ROS Other: All systems not noted in ROS Statement are negative. Past Medical History Past Medical History: Musculoskeletal Disorder Additional Past Medical History / Comment(s): OB history: First was a vaginal delivery at 42 weeks of a stillbirth. Second was a normal vaginal delivery at 39 weeks. This is her third and she's had care with me since the first trimester. O+, abs neg, Rub immune, RPR NR, Hep B neg, GBS negative. [facility] recommended NSTs, biophysical profiles and delivery at 39 weeks-40 weeks. History of Any Multi-Drug Resistant Organisms: None Reported Past Surgical History: No Surgical Hx Reported Past Anesthesia/Blood Transfusion Reactions: No Reported Reaction Past Psychological History: No Psychological Hx Reported Smoking Status: Never smoker Past Alcohol Use History: Occasional Past Drug Use History: None Reported - Past Family History Father Family Medical History: Coronary Artery Disease (CAD) General Exam - General Exam Comments Initial Comments: GENERAL: Patient is well-developed and well-nourished. Patient is nontoxic and in no acute distress. HEAD: Atraumatic, normocephalic. EYES: Pupils equal round and reactive to light, extraocular movements intact, sclera anicteric, conjunctiva are normal. Eyelids were unremarkable. ENT: TMs normal, nares patent, oropharynx clear without exudates. Moist mucous membranes. NECK: Normal range of motion, supple without lymphadenopathy or JVD. LUNGS: Unlabored respirations. Breath sounds clear to auscultation bilaterally and equal. No wheezes rales or rhonchi. HEART: Regular rate and rhythm without murmurs, rubs or gallops. ABDOMEN: Soft, nontender, normoactive bowel sounds. No guarding, no rebound. No masses appreciated. MUSCULOSKELETAL: Normal extremities with adequate strength and normal range of motion, no pitting or edema. No clubbing or cyanosis. NEUROLOGICAL: Patient is alert and oriented x 3. SKIN: Warm, Dry, normal turgor, no rashes or lesions noted. Limitations: no limitations Course Vital Signs 06/09/21 07:38 Temperature 97.6 F Pulse Rate 83 Respiratory 18 Rate Blood Pressure 105/70 O2 Sat by Pulse 98 Oximetry Medical Decision Making - Medical Decision Making Patient is a 36-year-old female here requesting monoclonal antibodies. She's been having viral type symptoms for 5 days, tested positive for Covid this morning. Her vitals are completely normal, her exam is unremarkable. He shouldn't receive monoclonal antibodies without adverse side effects. Her vitals remained stable. She is stable for discharge. She'll follow up with her primary care. Return parameters were discussed with her and she verbalized understanding. Case discussed with Dr. Landrum. Disposition Clinical Impression: COVID-19 Disposition: HOME SELF-CARE Condition: Stable Instructions (If sedation given, give patient instructions): Coronavirus Disease 2019 (COVID-19) Additional Instructions: Please return to the Emergency Department if symptoms worsen or any other concerns. Take Tylenol and/or Motrin for fever or body aches. Continued to drink lots of fluids. Follow up with your primary care as needed. Is patient prescribed a controlled substance at d/c from ED?: No Referrals: None,Stated [Primary Care Provider] - 1-2 days Time of Disposition: 10:02
[2021-06-09] MEDS ORDERED: BAMLANIVIMAB (EUA) 700 MG, ETESEVIMAB (EUA) 1,400 MG in SODIUM CHLORIDE 0.9% 50 ML IVPB ONE (08:30)
[2021-06-09 10:11] VITALS: BP 101/69; PULSE 72
== END 2021-06-09 10:12 | disposition home or self-care (01) ==
LOC: EC 07:37
DX: U07.1 COVID-19 (principal); Z72.89 Other problems related to lifestyle
CPT/HCPCS: 99284; 96365; J3490

== ENCOUNTER → 2022-02-11 | Outpatient (CLI) | payer OTHER | END | disposition home or self-care (01) | LOC: LABWHC1 07:04 | PROVIDERS: ATTEND Obstetrics & Gynecology Reproductive Endocrinology | DX: Z32.00 Encounter for pregnancy test, result unknown (principal) | CPT/HCPCS: 36415; 84144; 84702 ==

== ENCOUNTER → 2022-02-13 | Outpatient (CLI) | payer OTHER ==
[2022-02-13 09:05] LABS: HCG,Quantitative Serum 640.2 mIU/mL
== END | disposition home or self-care (01) ==
LOC: LABWHC1 07:10
PROVIDERS: ATTEND Obstetrics & Gynecology
DX: Z32.00 Encounter for pregnancy test, result unknown (principal)
CPT/HCPCS: 36415; 84144; 84443; 84702

== ENCOUNTER → 2022-07-17 | Outpatient (CLI) | payer OTHER ==
[2022-07-17 14:43] LABS: HCT 36.4 % (37.2-46.3); HGB 11.8 g/dL (12.0-15.0); MCH 30.6 pg (27.0-32.0); MCHC 32.4 g/dL (32.0-37.0); MCV 94.3 fL (80.0-97.0); Mean Platelet Volume 10.8 fL (9.5-12.2); NRBC Per 100 WBC 0 /100 WBCS (0.0-0.0); Platelet Count 210 X 10*3/uL (140-440); RBC 3.86 X 10*6/uL (4.10-5.20); RDW 12.3 % (11.5-14.5); WBC 9.53 X 10*3/uL (4.50-10.00)
[2022-07-17 20:39] LABS: T4, Free (Free Thyroxine) 0.89 ng/dL (0.800-1.800)
== END | disposition home or self-care (01) ==
LOC: LABWHC1 07:06
PROVIDERS: ATTEND Obstetrics & Gynecology
DX: Z34.82 Encounter for supervision of other normal pregnancy, second trimester (principal); E03.9 Hypothyroidism, unspecified; Z3A.00 Weeks of gestation of pregnancy not specified
CPT/HCPCS: 36415; 82950; 84439; 84443; 85027

== ENCOUNTER 2022-10-19 05:22 | Inpatient (IN) | payer OTHER ==
[2022-10-19] MEDS ORDERED: LIDOCAINE 0.5% (PF) 5 MG/ML (50 ML SDV) SQ PRN (07:00)
[2022-10-19] MEDS ORDERED: OXYTOCIN 10 UNIT/ML 1 ML VIAL IM PRN (07:00)
[2022-10-19] MEDS ORDERED: miSOPROStoL 200 MCG TAB PO PRN (07:00)
[2022-10-19] MEDS ORDERED: LACTATED RINGERS 1,000 ML IV SCH ×2 (07:00)
[2022-10-19] MEDS ORDERED: TERBUTALINE 1 MG/ML VIAL SQ PRN (07:00)
[2022-10-19] MEDS ORDERED: CARBOPROST TROMETHAMINE 250 MCG/ML 1 ML AMP IM PRN (07:00)
[2022-10-19] MEDS ORDERED: TRANEXAMIC ACID IN NACL,ISO-OS 1,000 MG in EMPTY BAG 1 BAG IV PRN (07:00)
[2022-10-19] MEDS ORDERED: METHYLERGONOVINE 0.2 MG/ML 1 ML AMP IM PRN (07:00)
[2022-10-19 07:24] LABS: Basophils % (A) 0 %; Eosinophils # (A) 0.1 k/uL (0-0.7); Eosinophils % (A) 0 %; HGB 12.8 gm/dL (11.4-16.0); Lymphocytes # (A) 0.9 k/uL (1.0-4.8); Lymphocytes % (A) 5 %; MCH 31.1 pg (25.0-35.0); MCHC 34.6 g/dL (31.0-37.0); MCV 89.9 fL (80.0-100.0); Mean Platelet Volume 8.2; Monocytes # (A) 0.6 k/uL (0-1.0); Monocytes % (A) 4 %; Neutrophils # (A) 14.3 k/uL (1.3-7.7); Neutrophils % (A) 89 %; Platelet Count 199 k/uL (150-450); RBC 4.12 m/uL (3.80-5.40)
[2022-10-19] MEDS ORDERED: fentaNYL (PF) 50 MCG/ML 5 ML AMP ONE (07:28)
[2022-10-19] MEDS ORDERED: SODIUM CHLORIDE 0.9% 100 ML BAG ONE (07:28)
[2022-10-19] MEDS ORDERED: ROPIVACAINE 5 MG/ML 20 ML AMPULE ONE (07:28)
--- NOTE | 2022-10-19 08:26 | P.HPOB ---
History of Present Illness H&P Date: 10/19/22 Chief Complaint: Contractions This is a 37-year-old female 5 para 3, with an estimated date of confinement of 10/20/2022, estimated gestational age of 39-6/7 weeks, who presents to labor and delivery for contractions that became stronger proximally 4 AM this morning. Her care has been with Dr. Guillen and has been uncomplicated. 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 labs: Pap smear-within normal limits GC/chlamydia/Trichomonas-negative Hepatitis B surface antigen-negative RPR-nonreactive Rubella-immune Blood type-O+ Antibody screen-negative HIV-nonreactive Hemoglobin-13 Random glucose-61 One hour Glucola-81 Group B streptococcus-negative Obstetrical history: . History of 3 vaginal deliveries at term. Her first resulted in a full-term demise at 42-1/2 weeks. She also has a history of 1 miscarriage that resulted in a dilation and curettage. Gynecologic history: No history of sexual transmitted diseases Social history: She is . She works in real estate. Review of Systems Constitutional: Denies chills, Denies fever Eyes: denies blurred vision, denies pain Ears, nose, mouth and throat: Denies headache, Denies sore throat Cardiovascular: Denies chest pain, Denies shortness of breath Respiratory: Denies cough Gastrointestinal: Reports abdominal pain (contractions) Genitourinary: Denies dysuria, Denies hematuria Musculoskeletal: Reports low back pain Integumentary: Denies pruritus, Denies rash Neurological: Denies numbness, Denies weakness Psychiatric: Reports anxiety Past Medical History Past Medical History: No Reported History History of Any Multi-Drug Resistant Organisms: None Reported Past Surgical History: No Surgical Hx Reported Past Anesthesia/Blood Transfusion Reactions: No Reported Reaction Past Psychological History: Anxiety, Depression Smoking Status: Never smoker Past Alcohol Use History: Occasional Past Drug Use History: None Reported - Past Family History Father Family Medical History: Coronary Artery Disease (CAD) Medications and Allergies Home Medications Medication Instructions Recorded Confirmed Type Levothyroxine Sodium [Synthroid] 75 mcg PO DAILY 10/19/22 10/19/22 History Pnv No.175/Iron Fum/Folic Acid 0.5 tab PO DAILY 10/19/22 10/19/22 History [ Complete Tablet] Allergies Allergy/AdvReac Type Severity Reaction Status Date / Time No Known Allergies Allergy Verified 10/19/22 05:29 Exam Osteopathic Statement: *. No significant issues noted on an osteopathic structural exam other than those noted in the History and Physical/Consult. Vital Signs Temp Pulse Resp BP Pulse Ox 10/19/22 06:56 98.0 F 111 H 19 123/67 98 Intake and Output 10/18/22 10/19/22 10/19/22 22:59 06:59 14:59 Other: Weight 74.843 kg HEENT: Within normal limits Heart: Regular rate and rhythm Lungs: Clear to auscultation bilaterally Abdomen: Cervix: Was 4 on arrival to triage currently is 5-1/2 cm/90%/-2 station. Artificial rupture membranes is carried out with meconium fluid noted. heart tones: Category 1 Contractions: Every 2-4 minutes Extremities: Negative Homans Results Result Diagrams: 10/19/22 07:00 Abnormal Lab Results - Last 24 Hours (Table) 10/19/22 Range/Units 07:00 WBC 16.0 H (3.8-10.6) k/uL Neutrophils # 14.3 H (1.3-7.7) k/uL Lymphocytes # 0.9 L (1.0-4.8) k/uL Assessment and Plan (1) 39 weeks gestation of Current Visit: Yes Status: Acute Code(s): Z3A.39 - 39 WEEKS GESTATION OF SNOMED Code(s): 98663987 (2) Meconium in amniotic fluid Current Visit: Yes Status: Acute Code(s): P96.83 - MECONIUM STAINING SNOMED Code(s): 533036020 Plan: Admission for active labor. Epidural anesthesia. Expectant management. Will notify pediatrics about meconium fluid.
--- NOTE | 2022-10-19 10:15 | P.PROBDLV ---
Vaginal Delivery Note - . Vaginal Delivery Note: The patient progressed to complete dilation after oxytocin augmentation of labor. Once reaching complete, she began pushing. Infant's head came to a crown and then delivered across the perineum followed by the anterior shoulder. Nose and mouth were bulb suctioned at the perineum. With one further push, the remainder the infant easily delivered and was placed on mother's abdomen. Cord was clamped and cut and was taken to warmer for evaluation. MANAGER DRUG was s tanding by but was not needed. A viable female is noted with scores of 8 at 1 minute and 9 at 5 minutes and weight was 7 lbs. 12 oz. After waiting approximately 10 minutes, patient was noted to be bleeding was some clots but the placenta was not ready to separate yet. I placed a gloved hand within the uterine cavity and manually remove the placenta along with several clots. Uterus did firm up after oxytocin was given and uterine massage was carried out. Placenta did appear to be intact. Inspection of the perineum revealed a small superficial skin abrasion that was noted to be hemostatic. No stitching was required. Estimated blood loss was approximately 200 mL's. Both mother and are in stable condition.
[2022-10-19] MEDS ORDERED: diphenhydrAMINE 50 MG CAP PO PRN (10:46)
[2022-10-19] MEDS ORDERED: ACETAMINOPHEN TAB 325 MG TAB PO PRN (10:46)
[2022-10-19] MEDS ORDERED: BENZOCAINE/MENTHOL SPRAY 1 GM/SPRAY AEROSOL TOPICAL PRN (10:46)
[2022-10-19] MEDS ORDERED: diphenhydrAMINE 25 MG CAP PO PRN (10:46)
[2022-10-19] MEDS ORDERED: SIMETHICONE 80 MG CHEWABLE PO PRN (10:46)
[2022-10-19] MEDS ORDERED: diphenhydrAMINE 50 MG/ML 1 ML VIAL IVP PRN ×2 (10:46)
[2022-10-19] MEDS ORDERED: OXYTOCIN 30 UNITS/500 ML NS 30 UNIT in SALINE 1 500ML.BAG IV SCH (10:46)
[2022-10-19] MEDS ORDERED: LANOLIN CREAM 5 GM TUBE TOPICAL PRN (10:46)
[2022-10-19] MEDS ORDERED: ZOLPIDEM 5 MG TAB PO PRN (10:46)
[2022-10-19] MEDS ORDERED: HYDROCORTISONE 2.5% RECTAL CREAM 30 GM TUBE RECTAL PRN (10:46)
[2022-10-19] MEDS: IBUPROFEN 600 MG TAB PO PRN ×2 (13:56→21:20)
[2022-10-19] MEDS: SENNOSIDES-DOCUSATE SODIUM 1 EACH TAB PO SCH (20:30)
[2022-10-20 02:21] VITALS: PULSE 68
[2022-10-20] MEDS ORDERED: LEVOTHYROXINE 75 MCG TAB PO SCH (06:30)
[2022-10-20 06:39] LABS: Basophils % (A) 0 %; Eosinophils # (A) 0.1 k/uL (0-0.7); Eosinophils % (A) 1 %; HCT 33.4 % (34.0-46.0); HGB 11.5 gm/dL (11.4-16.0); Lymphocytes # (A) 1.3 k/uL (1.0-4.8); Lymphocytes % (A) 10 %; MCH 30.8 pg (25.0-35.0); MCHC 34.5 g/dL (31.0-37.0); MCV 89.3 fL (80.0-100.0); Mean Platelet Volume 8.8; Monocytes # (A) 0.4 k/uL (0-1.0); Monocytes % (A) 3 %; Neutrophils # (A) 11.5 k/uL (1.3-7.7); Neutrophils % (A) 85 %; Platelet Count 192 k/uL (150-450); RBC 3.74 m/uL (3.80-5.40); RDW 13.6 % (11.5-15.5); WBC 13.5 k/uL (3.8-10.6)
[2022-10-20 07:06] LABS: T4, Free (Free Thyroxine) 0.66 ng/dL (0.78-2.19)
[2022-10-20] MEDS: SENNOSIDES-DOCUSATE SODIUM 1 EACH TAB PO SCH (08:05)
[2022-10-20] MEDS: IBUPROFEN 600 MG TAB PO PRN (08:10)
[2022-10-20 08:47] VITALS: BP 102/64; RESP 16; TEMP 97.7
[2022-10-20] MEDS ORDERED: PRENATAL VIT-IRON-FOLIC ACID 1 EACH TABLET PO SCH (09:00)
--- NOTE | 2022-10-20 10:20 | P.DS ---
Providers Date of admission: 10/19/22 06:42 Expected date of discharge: 10/20/22 Attending physician: Mercedes Guillen Primary care physician: Stated None - Discharge Diagnosis(es) (1) 39 weeks gestation of Current Visit: Yes Status: Acute (2) Meconium in amniotic fluid Current Visit: Yes Status: Acute Hospital Course: This is a 37-year-old female 5 para 3 at 39-6/7 weeks who presents to labor and delivery in active labor. She delivered vaginally a viable female inf ant with scores of 8 at 1 minute and 9 at 5 minutes and infant weight of 7 lbs. 12 oz. on 10/19/2022. Please see history and physical and delivery note for details of patient's admission. Her course has been uncomplicated. She is breast-feeding. Lochia is decreasing. Pain is fairly well controlled. Vital signs are stable. Abdomen is soft with fundus firm and nontender. Extremities show negative Homans. Impression is status post vaginal delivery day #1. Plan is to discharge home today. Routine instructions are given. She is advised to follow up with Dr. Guillen in the office in 6 weeks. She is advised to call the office if she has any further questions or concerns prior to her appointment time. Procedures: Spontaneous vaginal delivery of a viable female on 10/19/2022 Patient Condition at Discharge: Stable Plan - Discharge Summary New Discharge Prescriptions: New Ibuprofen [Motrin] 600 mg PO Q6HR PRN #60 tab PRN Reason: Mild Pain (Scale 1 To 3) Continue Pnv No.175/Iron Fum/Folic Acid [ Complete Tablet] 0.5 tab PO DAILY Levothyroxine Sodium [Synthroid] 75 mcg PO DAILY Discharge Medication List Levothyroxine Sodium [Synthroid] 75 mcg PO DAILY 10/19/22 [History] Pnv No.175/Iron Fum/Folic Acid [ Complete Tablet] 0.5 tab PO DAILY 10/19/22 [History] Ibuprofen [Motrin] 600 mg PO Q6HR PRN #60 tab 10/20/22 [Rx] Follow up Appointment(s)/Referral(s): Mercedes Guillen DO [Doctor of Osteopathic Medicine] - 6 Weeks Activity/Diet/Wound Care/Special Instructions: Instructions 1. Do not begin any exercise program for 3 weeks. 2. Do not resume sexual relations for 3 weeks or longer if uncomfortable. 3. You may take tub baths or showers at any time. 4. You may use tampons if desired after 3 weeks. 5. Keep the area of episiotomy (stitches) clean and dry. 6. If you are not nursing, wear a good fitting, supportive bra during the day and limit fluid intake for at least 1 week to prevent breast engorgement. 7. Call the office, [phone], within the next week to make appointment for your 6 week checkup if it has not already been made. 8. Report any of the following occurrences to the doctor promptly: a. Heavy, excessive bleeding b. Chills, fever c. Burning or frequency of urination d. Pain or redness and breasts if nursing e. Increasing pain or swelling in episiotomy (stitches). In addition to the above instructions, the following additional should be followed: 1. No heavy lifting or straining (exercising) until after 6 week checkup. 2. Keep abdominal incision clean and dry: You may wear a dressing if more comfortable. 3. Make office appointment for 10 days after going home or as instructed by her doctor. Discharge Disposition: HOME SELF-CARE
--- NOTE | 2022-10-22 08:03 | P.MSEPDOC ---
Presenting Problems - Arrival Data Date of Arrival on Unit: 10/19/22 Time of Arrival on Unit: 05:30 Mode of Transport: Ambulatory - Complaint OB-Reason for Admission/Chief Complaint: Possible Onset of Labor Medical History - Information : 5 Para: 3 Term: 3 : 0 Abortions: Spontaneous or Elective: 1 Number of Living Children: 2 - Gestational Age Gestational Age by BRISEYDA (wks/days): 39 Weeks and 6 Days Review of Systems - Review of Systems Constitutional: No problems Breast: No problems ENT: No problems Cardiovascular: No problems Respiratory: No problems Gastrointestinal: No problems Genitourinary: No problems Musculoskeletal: No problems Neurological: No problems Skin: No problems Vital Signs - Temperature Temperature: 97.7 F Temperature Source: Oral - Pulse Pulse Oximetery Pulse Rate: 68 Pulse Assessment Method: Pulse Oximetry - Respirations Respiratory Rate: 16 Oxygen Delivery Method: Room Air O2 Sat by Pulse Oximetry: 98 - Blood Pressure Right Arm Blood Pressure: 102/64 Blood Pressure Mean: 76 Blood Pressure Source: Automatic Cuff Medical Screen Scoring - Cervical Exam Dilation (cm): 5 Effacement (%): 100 Station: -2 Membranes: Intact - Uterine Contractions Frequency From (mins): 2 Frequency To (mins): 4 Duration From (seconds): 50 Duration To (seconds): 70 Intensity: Moderate Resting: Soft to palpation - Assessment - Baby A Baseline FHR: 140 Heart Rate - NICHD Category: Category I (Normal) NST: Reactive Physician Notification - Physician Notified Physician Notified Date: 10/19/22 Physician Notified Time: 06:40 Physician: Pauline Ferreira Maternal Triage Index - Maternal Triage Index Presenting for scheduled procedure w/no complaint: No - Stat/Priority 1 Stat Priority 1: No - Urgent/Priority 2 Urgent Priority 2: No - Prompt/Priority 3 Prompt Priority 3: No - Non-Urgent/Priority 4 Non-Urgent Priority 4: Yes Criteria Met for Priority 4: signs of labor Disposition - Disposition OB Disposition: Admit Discharge Date: 10/20/22 Discharge Time: 11:13 I agree with the RN Medical Screening Exam: Yes Case reviewed; plan agreed upon as documented in EMR&OBIX.: Yes Diagnosis: ENCOUNTER FOR FULL-TERM UNCOMPLICATED DELIVERY
== END 2022-10-20 11:14 | disposition home or self-care (01) | DRG 807 ==
LOC: FBPOP 05:22 → 4FBP 06:42
PROVIDERS: ADMIT Obstetrics & Gynecology; ATTEND Obstetrics & Gynecology
PROC: 10E0XZZ Delivery of Products of Conception, External Approach (ICD-10-PCS; principal; 2022-10-19)
PROC: 10907ZC Drainage of Amniotic Fluid, Therapeutic from Products of Conception, Via Natural or Artificial Opening (ICD-10-PCS; 2022-10-19)
PROC: 4A0HXCZ Measurement of Products of Conception, Cardiac Rate, External Approach (ICD-10-PCS; 2022-10-19)
PROC: 0UQMXZZ Repair Vulva, External Approach (ICD-10-PCS; 2022-10-19)
PROC: 3E033VJ Introduction of Other Hormone into Peripheral Vein, Percutaneous Approach (ICD-10-PCS; 2022-10-19)
DX: O77.0 Labor and delivery complicated by meconium in amniotic fluid (principal); Z37.0 Single live birth; O71.82 Other specified trauma to perineum and vulva; O99.344 Other mental disorders complicating childbirth; F32.A Depression, unspecified; F41.9 Anxiety disorder, unspecified; Z3A.39 39 weeks gestation of pregnancy
CPT/HCPCS: 59025; 84112; 84439; 84443; 85025; 86850; 86900; 86901; 99213